=== PATIENT | male | born 1980 | race African-American/Black ===

== ENCOUNTER 2020-09-18 20:21 | Emergency (ER) | payer SELFPAY ==
[~2020-09-18] VITALS: Ht 177.8 cm; Wt 70.4 kg
[~2020-09-18 20:21] MED LIST: CEPHALEXIN500 M1 PO; NO HOME MEDICATIONS; PHENERGAN W/CO120 M1 PO; TAMIFLU75 MG PO
[2020-09-18 21:23] LABS: BASO # 0.1 (0.02-0.10); HEMATOCRIT 47.1 % (42.0-52.0); HEMOGLOBIN 15.7 g/dL (13.5-18.0); LYMPH# 1.4 (1.50-4.00); MEAN CELL VOLUME 89 fl (78-100); MEAN CORPUSCULAR HEMOGLOBIN 30 pg (27-31); MEAN CORPUSCULAR HGB CONC 33 g/dL (33-37); MEAN PLATELET VOLUME 8.5 fl (7.4-10.4); MONO # 0.9 (0.20-0.80); NEU # 8.4 (1.40-6.50); PLATELET COUNT 254 K/mm3 (130-400); RED BLOOD COUNT 5.27 M/mm3 (4.20-5.60); WHITE BLOOD COUNT 10.8 K/mm3 (4.8-10.8)
[2020-09-18 21:47] LABS: STREP SCREEN POSITIVE (NEGATIVE)
[2020-09-18] MEDS ORDERED: METOPROLOL SUCC50 M1 PO (22:06)
[2020-09-18] MEDS ORDERED: CEPHALEXIN250 MG PO (22:06)
[2020-09-18 23:06] VITALS: BP 178/121
== END 2020-09-18 23:07 | disposition home or self-care (01) ==
LOC: ED 20:21
PROVIDERS: Family Medicine
DX: J02.0 Streptococcal pharyngitis (principal); I10 Essential (primary) hypertension; F17.200 Nicotine dependence, unspecified, uncomplicated; Z20.828 Contact with and (suspected) exposure to other viral communicable diseases; Z88.0 Allergy status to penicillin